=== PATIENT | male | born 1945 | race Caucasian/White ===

== ENCOUNTER 2017-12-22 02:56 | Inpatient (IN) | payer MEDICARE, OTHER ==
[~2017-12-22] VITALS: Ht 172.7 cm; Wt 64.8 kg
[2017-12-22] MEDS ORDERED: DILTIAZEM 125 MG in DEXTROSE 5% 100 ML IV SCH (03:11)
[2017-12-22] MEDS ORDERED: ASPIRIN 81 MG TABLET CHEW ONE (03:16)
[2017-12-22 03:20] LABS: MEAN CORPUSCULAR HEMOGLOBIN 25.9 pg (27.5-34.5); MEAN CORPUSCULAR HGB CONC 31.2 g/dL (33.2-36.2); MEAN CORPUSCULAR VOLUME 82.9 fL (81-97); MEAN PLATELET VOLUME 8.9 fL (7.4-10.4); PLATELET COUNT 379 x10^3/uL (130-400); RED BLOOD COUNT 4.99 x10^6/uL (4.38-5.82); RED CELL DISTRIBUTION WIDTH 16.9 % (9.4-14.8)
[2017-12-22] MEDS ORDERED: DILTIAZEM 5 MG/ML, 5ML IV ONE (03:30)
[2017-12-22] MEDS ORDERED: SODIUM CHLORIDE FLUSH 10ML SYR IVF ONE (03:30)
[2017-12-22] MEDS ORDERED: ASPIRIN 81 MG TABLET CHEW PO ONE (03:30)
[2017-12-22 03:32] LABS: INTERNATIONAL NORMALIZED RATIO 1.49 (0.93-1.1); PROTHROMBIN TIME 15.4 Seconds (9.6-11.5)
[2017-12-22 03:34] LABS: ALANINE AMINOTRANSFERASE 40 U/L (12-78); ALBUMIN 2.9 g/dL (3.4-5.0); ANION GAP 4 mmol/L (5-15); CALCIUM 9.1 mg/dL (8.5-10.1); CHLORIDE 101 mmol/L (98-107); CREATININE 1.53 mg/dL (0.7-1.3)
[2017-12-22 03:39] LABS: ALKALINE PHOSPHATASE 104 U/L (45-117); BILIRUBIN,TOTAL 0.4 mg/dL (0.2-1.0); TOTAL PROTEIN 7.6 g/dL (6.4-8.2); TROPONIN I 0.041 ng/mL (0.000-0.045)
[2017-12-22] MEDS ORDERED: CALCIUM CHLORIDE 10%, 10ML SYR IVPush ONE (04:00)
[2017-12-22] MEDS ORDERED: FUROSEMIDE 40 MG/4 ML IV ONE ×2 (04:00→11:30)
[2017-12-22] MEDS ORDERED: INSULIN REGULAR 100 UNITS/ML, 3ML VIAL IVPush ONE (04:00)
[2017-12-22] MEDS ORDERED: DEXTROSE 50%, 50ML SYRINGE IVPush ONE (04:00)
[2017-12-22] MEDS ORDERED: FUROSEMIDE 40 MG/4 ML ONE (04:10)
[2017-12-22] MEDS ORDERED: DEXTROSE 50%, 50ML SYRINGE ONE (04:10)
[2017-12-22] MEDS ORDERED: CALCIUM CHLORIDE 10%, 10ML SYR ONE (04:10)
[2017-12-22] MEDS ORDERED: INSULIN REGULAR 100 UNITS/ML, 3ML VIAL ONE (04:11)
[2017-12-22 04:13] LABS: BASOPHILS # (AUTO) 0.05 x10^3/uL (0-0.1); BASOPHILS % (AUTO) 0 % (0-1); EOSINOPHILS # (AUTO) 0.01 x10^3/uL (0-0.4); EOSINOPHILS % (AUTO) 0 % (1-7); LYMPHOCYTES # (AUTO) 0.54 x10^3/uL (1-3.4); LYMPHOCYTES % (AUTO) 3 % (22-44); MD SCAN; MONOCYTES # (AUTO) 1.53 x10^3/uL (0.2-0.8); MONOCYTES % (AUTO) 9 % (2-9); NEUTROPHILS # (AUTO) 14.18 x10^3/uL (1.8-6.8); NEUTROPHILS % (AUTO) 87 % (42-75)
[2017-12-22] MEDS ORDERED: SODIUM CHLORIDE 0.9% 1,000 ML IV SCH (04:27)
[2017-12-22] MEDS ORDERED: PROMETHAZINE 25 MG/ML, 1ML IM PRN (04:30)
[2017-12-22] MEDS ORDERED: DILTIAZEM 125 MG in SODIUM CHLORIDE 0.9% 100 ML IV PRN (04:30)
[2017-12-22] MEDS ORDERED: DILTIAZEM 5 MG/ML, 5ML IVPush PRN (04:30)
[2017-12-22] MEDS ORDERED: ONDANSETRON ODT 4 MG PO PRN (04:30)
[2017-12-22] MEDS ORDERED: ONDANSETRON 2MG/ML, 2ML IVPush PRN (04:30)
[2017-12-22] MEDS ORDERED: hydrALAzine 20 MG/ML, 1ML IVPush PRN (04:30)
[2017-12-22] MEDS ORDERED: morphine SULFATE 10 MG/ML, 1ML IVPush PRN (04:30)
[2017-12-22 06:00] VITALS: BP 117/83
[2017-12-22] MEDS ORDERED: ATOR10TA9 PO (06:32)
[2017-12-22] MEDS ORDERED: MULT-297 PO (06:32)
[2017-12-22] MEDS ORDERED: FINA5TAB4 PO (06:32)
[2017-12-22] MEDS ORDERED: calcium PO (06:32)
[2017-12-22] MEDS ORDERED: METO25TA35 PO (06:32)
[2017-12-22] MEDS ORDERED: ASCO500T8 PO (06:32)
[2017-12-22] MEDS: HEPARIN 5,000 UNITS/ML, 1ML SQ SCH ×2 (06:36→18:03)
[2017-12-22] MEDS ORDERED: BUDE10.2 PO (06:36)
[2017-12-22] MEDS ORDERED: ALBU8.5H8 PO (06:36)
[2017-12-22] MEDS: METOPROLOL TARTRATE 25 MG TABLET PO SCH ×3 (06:37→18:03)
[2017-12-22 08:04] VITALS: BP 119/76
[2017-12-22] MEDS: ALBUTEROL SULFATE 2.5 MG/3 ML NPPB SCH (09:00)
[2017-12-22 09:05] LABS: CULTURE INDICATED? NO; MICROSCOPIC NOT IND
[2017-12-22 12:02] VITALS: BP 127/75
[2017-12-22 18:01] VITALS: BP 135/74
[2017-12-22 19:14] VITALS: BP 134/75
[2017-12-22] MEDS: ACETAMINOPHEN 325 MG TABLET PO PRN (21:14)
[2017-12-23] MEDS: METOPROLOL TARTRATE 25 MG TABLET PO SCH ×4 (00:09→16:46)
[2017-12-23] MEDS ORDERED: DIPHENHYDRAMINE 50 MG CAPSULE ONE (00:15)
[2017-12-23] MEDS ORDERED: DIPHENHYDRAMINE 50 MG CAPSULE PO ONE ×2 (00:30)
[2017-12-23] MEDS: ALBUTEROL SULFATE 2.5 MG/3 ML NPPB SCH ×2 (00:43→09:00)
[2017-12-23 01:07] VITALS: BP 114/63
[2017-12-23] MEDS: HEPARIN 5,000 UNITS/ML, 1ML SQ SCH ×2 (05:28→18:22)
[2017-12-23 05:57] LABS: BASOPHILS % (AUTO) 0 % (0-1); EOSINOPHILS # (AUTO) 0.07 x10^3/uL (0-0.4); EOSINOPHILS % (AUTO) 0 % (1-7); LYMPHOCYTES # (AUTO) 0.47 x10^3/uL (1-3.4); LYMPHOCYTES % (AUTO) 3 % (22-44); MD NO; MEAN CORPUSCULAR HEMOGLOBIN 26.9 pg (27.5-34.5); MEAN CORPUSCULAR HGB CONC 32.2 g/dL (33.2-36.2); MEAN CORPUSCULAR VOLUME 83.6 fL (81-97); MEAN PLATELET VOLUME 9.1 fL (7.4-10.4); MONOCYTES # (AUTO) 1.23 x10^3/uL (0.2-0.8); MONOCYTES % (AUTO) 8 % (2-9); NEUTROPHILS # (AUTO) 13.42 x10^3/uL (1.8-6.8); NEUTROPHILS % (AUTO) 88 % (42-75); PLATELET COUNT 318 x10^3/uL (130-400); RED BLOOD COUNT 5.03 x10^6/uL (4.38-5.82); RED CELL DISTRIBUTION WIDTH 16.9 % (9.4-14.8)
[2017-12-23 06:05] LABS: ALBUMIN 2.8 g/dL (3.4-5.0); ANION GAP 7 mmol/L (5-15); CHLORIDE 100 mmol/L (98-107)
[2017-12-23 06:19] LABS: ALANINE AMINOTRANSFERASE 36 U/L (12-78); ALKALINE PHOSPHATASE 95 U/L (45-117); BILIRUBIN,TOTAL 0.4 mg/dL (0.2-1.0); CREATININE 1.58 mg/dL (0.7-1.3); TOTAL PROTEIN 7.2 g/dL (6.4-8.2)
[2017-12-23 06:47] VITALS: BP 123/67
[2017-12-23 06:59] VITALS: BP 128/60
[2017-12-23] MEDS ORDERED: SODIUM POLYSTYRENE SULFONATE ORAL SUSP PO ONE (07:00)
[2017-12-23] MEDS: ASPIRIN 325 MG TABLET EC PO SCH (07:30)
[2017-12-23] MEDS ORDERED: FUROSEMIDE 40 MG/4 ML ONE (07:41)
[2017-12-23] MEDS ORDERED: FUROSEMIDE 40 MG/4 ML IV ONE ×2 (08:00)
[2017-12-23] MEDS: FUROSEMIDE 40 MG/4 ML IV SCH (08:01)
[2017-12-23] MEDS ORDERED: LIDOCAINE-MPF 2%, 2ML ONE ×2 (08:09→10:09)
[2017-12-23] MEDS ORDERED: FUROSEMIDE 20 MG/2 ML IV SCH (09:00)
[2017-12-23] MEDS ORDERED: LIDOCAINE-MPF 1%, 2ML ENDO PRN (15:30)
[2017-12-23] MEDS ORDERED: SENNOSIDES 8.8 MG/5 ML ORAL SOL NG PRN (15:30)
[2017-12-23] MEDS ORDERED: SENNA/DOCUSATE TABLET NG PRN (15:30)
[2017-12-23] MEDS ORDERED: LACTULOSE 20 GM/30 ML UDC NG PRN (15:30)
[2017-12-23] MEDS: ALBUTEROL/IPRATROPIUM 2.5MG/0.5MG, 3 ML INLINE SCH ×3 (15:30→22:05)
[2017-12-23] MEDS ORDERED: BISACODYL 10 MG SUPP PR PRN (15:30)
[2017-12-23] MEDS ORDERED: PHARMACY MAY ADJ FOR RENAL FX MC SCH (15:30)
[2017-12-23] MEDS: METOPROLOL 1 MG/ML, 5ML IVPush PRN (15:45)
[2017-12-23] MEDS: FAMOTIDINE 20 MG/2 ML IV SCH (15:48)
[2017-12-23] MEDS: CEFTRIAXONE 2 GM in SODIUM CHLORIDE 0.9% 50 ML IV SCH (15:53)
[2017-12-23] MEDS: DOXYCYCLINE 100 MG in DEXTROSE 5% 250 ML IV SCH (15:53)
[2017-12-23] MEDS ORDERED: PROPOFOL 100 ML IV ONE (16:49)
[2017-12-23] MEDS: PROPOFOL 100 ML IV PRN (16:55)
[2017-12-24] MEDS ORDERED: ROCURONIUM 10 MG/ML,10ML ONE
[2017-12-24] MEDS ORDERED: MIDAZOLAM 1 MG/ML, 5ML ONE
[2017-12-24] MEDS ORDERED: PROPOFOL 10 MG/ML, 100ML IV ONE
[2017-12-24] MEDS: METOPROLOL TARTRATE 25 MG TABLET PO SCH ×2 (01:14→05:35)
[2017-12-24] MEDS: PROPOFOL 100 ML IV PRN ×4 (01:16→17:02)
[2017-12-24] MEDS: ALBUTEROL/IPRATROPIUM 2.5MG/0.5MG, 3 ML INLINE SCH ×6 (02:15→22:34)
[2017-12-24 04:00] VITALS: BP 113/62
[2017-12-24] MEDS: FAMOTIDINE 20 MG/2 ML IV SCH ×2 (04:14→19:36)
[2017-12-24] MEDS: DOXYCYCLINE 100 MG in DEXTROSE 5% 250 ML IV SCH ×2 (04:14→16:52)
[2017-12-24 04:40] LABS: ALANINE AMINOTRANSFERASE 23 U/L (12-78); ALBUMIN 2.2 g/dL (3.4-5.0); ANION GAP 10 mmol/L (5-15); CALCIUM 8.1 mg/dL (8.5-10.1); CHLORIDE 101 mmol/L (98-107)
[2017-12-24 04:43] LABS: ALKALINE PHOSPHATASE 74 U/L (45-117); BILIRUBIN,TOTAL 0.7 mg/dL (0.2-1.0); CREATININE 1.22 mg/dL (0.7-1.3); TOTAL PROTEIN 5.8 g/dL (6.4-8.2)
[2017-12-24] MEDS: ASPIRIN 325 MG TABLET EC PO SCH (05:35)
[2017-12-24 05:48] LABS: BASOPHILS # (AUTO) 0.02 x10^3/uL (0-0.1); BASOPHILS % (AUTO) 0 % (0-1); EOSINOPHILS # (AUTO) 0.01 x10^3/uL (0-0.4); EOSINOPHILS % (AUTO) 0 % (1-7); LYMPHOCYTES # (AUTO) 0.26 x10^3/uL (1-3.4); LYMPHOCYTES % (AUTO) 2 % (22-44); MD SCAN; MEAN CORPUSCULAR HGB CONC 32.5 g/dL (33.2-36.2); MEAN CORPUSCULAR VOLUME 79.9 fL (81-97); MONOCYTES # (AUTO) 1.06 x10^3/uL (0.2-0.8); MONOCYTES % (AUTO) 8 % (2-9); NEUTROPHILS # (AUTO) 11.33 x10^3/uL (1.8-6.8); NEUTROPHILS % (AUTO) 89 % (42-75); PLATELET COUNT 258 x10^3/uL (130-400); RED CELL DISTRIBUTION WIDTH 16.7 % (9.4-14.8)
[2017-12-24] MEDS: HEPARIN 5,000 UNITS/ML, 1ML SQ SCH ×2 (06:13→19:36)
[2017-12-24] MEDS: FUROSEMIDE 40 MG/4 ML IV SCH (10:25)
[2017-12-24] MEDS: VERAPAMIL 80MG TABLET PO SCH ×3 (11:18→22:32)
[2017-12-24] MEDS: CEFTRIAXONE 2 GM in SODIUM CHLORIDE 0.9% 50 ML IV SCH (16:51)
[2017-12-25] MEDS: ALBUTEROL/IPRATROPIUM 2.5MG/0.5MG, 3 ML INLINE SCH ×6 (02:08→22:20)
[2017-12-25] MEDS: PROPOFOL 100 ML IV PRN ×4 (02:15→22:21)
[2017-12-25 04:24] VITALS: BP 104/68
[2017-12-25 04:34] LABS: BASOPHILS # (AUTO) 0.02 x10^3/uL (0-0.1); BASOPHILS % (AUTO) 0 % (0-1); EOSINOPHILS # (AUTO) 0.11 x10^3/uL (0-0.4); EOSINOPHILS % (AUTO) 1 % (1-7); LYMPHOCYTES # (AUTO) 0.25 x10^3/uL (1-3.4); LYMPHOCYTES % (AUTO) 2 % (22-44); MD NO; MEAN CORPUSCULAR HEMOGLOBIN 26.4 pg (27.5-34.5); MEAN CORPUSCULAR HGB CONC 32.2 g/dL (33.2-36.2); MEAN CORPUSCULAR VOLUME 82.2 fL (81-97); MEAN PLATELET VOLUME 9.2 fL (7.4-10.4); MONOCYTES # (AUTO) 1.05 x10^3/uL (0.2-0.8); MONOCYTES % (AUTO) 10 % (2-9); NEUTROPHILS # (AUTO) 8.97 x10^3/uL (1.8-6.8); NEUTROPHILS % (AUTO) 86 % (42-75); PLATELET COUNT 246 x10^3/uL (130-400); RED BLOOD COUNT 4.37 x10^6/uL (4.38-5.82); RED CELL DISTRIBUTION WIDTH 16.5 % (9.4-14.8)
[2017-12-25 04:46] LABS: ANION GAP 8 mmol/L (5-15); CALCIUM 8.3 mg/dL (8.5-10.1); CHLORIDE 99 mmol/L (98-107); CREATININE 1.24 mg/dL (0.7-1.3)
[2017-12-25] MEDS: DOXYCYCLINE 100 MG in DEXTROSE 5% 250 ML IV SCH ×2 (05:04→16:37)
[2017-12-25] MEDS: ASPIRIN 325 MG TABLET EC PO SCH (08:00)
[2017-12-25] MEDS ORDERED: DIGOXIN 0.25 MG/ML, 2ML IVPush ONE (08:30)
[2017-12-25] MEDS: FUROSEMIDE 40 MG/4 ML IV SCH (08:50)
[2017-12-25] MEDS: FAMOTIDINE 20 MG/2 ML IV SCH ×2 (08:51→20:05)
[2017-12-25] MEDS: HEPARIN 5,000 UNITS/ML, 1ML SQ SCH ×2 (08:51→20:05)
[2017-12-25] MEDS: METOPROLOL TARTRATE 25 MG TABLET PO SCH ×2 (08:51→16:37)
[2017-12-25] MEDS ORDERED: ASPIRIN 81 MG TABLET CHEW PO ONE (09:00)
[2017-12-25] MEDS: CEFTRIAXONE 2 GM in SODIUM CHLORIDE 0.9% 50 ML IV SCH (16:16)
[2017-12-26] MEDS: METOPROLOL TARTRATE 25 MG TABLET PO SCH ×3 (00:13→16:08)
[2017-12-26] MEDS: ALBUTEROL/IPRATROPIUM 2.5MG/0.5MG, 3 ML INLINE SCH ×6 (02:25→22:40)
[2017-12-26 03:58] VITALS: BP 122/68
[2017-12-26] MEDS: DOXYCYCLINE 100 MG in DEXTROSE 5% 250 ML IV SCH ×2 (04:34→16:09)
[2017-12-26 04:46] LABS: BASOPHILS % (AUTO) 0 % (0-1); EOSINOPHILS # (AUTO) 0.22 x10^3/uL (0-0.4); EOSINOPHILS % (AUTO) 2 % (1-7); LYMPHOCYTES # (AUTO) 0.38 x10^3/uL (1-3.4); LYMPHOCYTES % (AUTO) 4 % (22-44); MD NO; MEAN CORPUSCULAR HEMOGLOBIN 26.1 pg (27.5-34.5); MEAN CORPUSCULAR HGB CONC 32.1 g/dL (33.2-36.2); MEAN CORPUSCULAR VOLUME 81.4 fL (81-97); MEAN PLATELET VOLUME 9.3 fL (7.4-10.4); MONOCYTES # (AUTO) 1.01 x10^3/uL (0.2-0.8); MONOCYTES % (AUTO) 10 % (2-9); NEUTROPHILS # (AUTO) 8.64 x10^3/uL (1.8-6.8); NEUTROPHILS % (AUTO) 84 % (42-75); PLATELET COUNT 234 x10^3/uL (130-400); RED BLOOD COUNT 4.39 x10^6/uL (4.38-5.82); RED CELL DISTRIBUTION WIDTH 16.8 % (9.4-14.8)
[2017-12-26 04:56] LABS: CHLORIDE 97 mmol/L (98-107); CREATININE 1.06 mg/dL (0.7-1.3)
[2017-12-26 05:02] LABS: CALCIUM 8.1 mg/dL (8.5-10.1); TRIGLYCERIDES 68 mg/dL (50-200)
[2017-12-26] MEDS: PROPOFOL 100 ML IV PRN ×3 (05:50→16:56)
[2017-12-26 05:52] LABS: ANION GAP 8 mmol/L (5-15)
[2017-12-26] MEDS ORDERED: DIGOXIN 0.25 MG/ML, 2ML IVPush ONE (07:30)
[2017-12-26] MEDS: AcetaZOLAMIDE INJ 500 MG IVPush SCH ×2 (09:15→21:44)
[2017-12-26] MEDS: FAMOTIDINE 20 MG/2 ML IV SCH ×2 (09:15→21:44)
[2017-12-26] MEDS: ASPIRIN 81 MG TABLET CHEW PO SCH (09:15)
[2017-12-26] MEDS: HEPARIN 5,000 UNITS/ML, 1ML SQ SCH (09:16)
[2017-12-26] MEDS: ENOXAPARIN 60 MG/0.6 ML SQ SCH ×2 (09:48→21:44)
[2017-12-26] MEDS: CEFTRIAXONE 2 GM in SODIUM CHLORIDE 0.9% 50 ML IV SCH (16:05)
[2017-12-27] MEDS: METOPROLOL TARTRATE 25 MG TABLET PO SCH ×3 (00:36→16:00)
[2017-12-27] MEDS: PROPOFOL 100 ML IV PRN ×3 (00:36→16:00)
[2017-12-27] MEDS: ALBUTEROL/IPRATROPIUM 2.5MG/0.5MG, 3 ML INLINE SCH ×6 (02:37→22:07)
[2017-12-27 04:13] VITALS: BP 108/53
[2017-12-27 04:32] LABS: BASOPHILS # (AUTO) 0.02 x10^3/uL (0-0.1); BASOPHILS % (AUTO) 0 % (0-1); EOSINOPHILS # (AUTO) 0.29 x10^3/uL (0-0.4); EOSINOPHILS % (AUTO) 3 % (1-7); LYMPHOCYTES # (AUTO) 0.37 x10^3/uL (1-3.4); LYMPHOCYTES % (AUTO) 4 % (22-44); MD NO; MEAN CORPUSCULAR HGB CONC 32.2 g/dL (33.2-36.2); MEAN CORPUSCULAR VOLUME 80.7 fL (81-97); MONOCYTES # (AUTO) 0.99 x10^3/uL (0.2-0.8); MONOCYTES % (AUTO) 11 % (2-9); NEUTROPHILS # (AUTO) 7.43 x10^3/uL (1.8-6.8); NEUTROPHILS % (AUTO) 82 % (42-75); PLATELET COUNT 237 x10^3/uL (130-400); RED BLOOD COUNT 4.19 x10^6/uL (4.38-5.82); RED CELL DISTRIBUTION WIDTH 16.7 % (9.4-14.8)
[2017-12-27 04:46] LABS: ANION GAP 7 mmol/L (5-15); CALCIUM 8.2 mg/dL (8.5-10.1); CHLORIDE 100 mmol/L (98-107)
[2017-12-27 04:47] LABS: CREATININE 0.96 mg/dL (0.7-1.3)
[2017-12-27] MEDS: DOXYCYCLINE 100 MG in DEXTROSE 5% 250 ML IV SCH ×2 (04:51→17:25)
[2017-12-27] MEDS: FAMOTIDINE 20 MG/2 ML IV SCH ×2 (08:09→20:00)
[2017-12-27] MEDS: ASPIRIN 81 MG TABLET CHEW PO SCH (08:09)
[2017-12-27] MEDS: ENOXAPARIN 60 MG/0.6 ML SQ SCH ×2 (08:10→20:01)
[2017-12-27] MEDS: AcetaZOLAMIDE INJ 500 MG IVPush SCH ×2 (08:10→20:00)
[2017-12-27] MEDS: ERYTHROMYCIN OPHTH 0.5%, 1GM EACHEYE SCH ×3 (11:04→19:55)
[2017-12-27] MEDS: CEFTRIAXONE 2 GM in SODIUM CHLORIDE 0.9% 50 ML IV SCH (16:00)
[2017-12-28] MEDS: METOPROLOL TARTRATE 25 MG TABLET PO SCH ×3 (00:46→16:00)
[2017-12-28] MEDS: PROPOFOL 100 ML IV PRN ×3 (00:46→13:29)
[2017-12-28] MEDS: ALBUTEROL/IPRATROPIUM 2.5MG/0.5MG, 3 ML INLINE SCH ×6 (02:18→22:14)
[2017-12-28 04:32] VITALS: BP 127/59
[2017-12-28] MEDS: POLYETHYLENE GLYCOL 17 GM PACKET PO PRN (05:03)
[2017-12-28] MEDS: DOXYCYCLINE 100 MG in DEXTROSE 5% 250 ML IV SCH ×2 (05:03→16:43)
[2017-12-28] MEDS: ERYTHROMYCIN OPHTH 0.5%, 1GM EACHEYE SCH ×4 (05:03→21:00)
[2017-12-28 05:10] LABS: ANION GAP 7 mmol/L (5-15); CALCIUM 8.2 mg/dL (8.5-10.1); CHLORIDE 103 mmol/L (98-107); CREATININE 0.83 mg/dL (0.7-1.3)
[2017-12-28 06:23] LABS: MEAN CORPUSCULAR HEMOGLOBIN 26.9 pg (27.5-34.5); MEAN CORPUSCULAR VOLUME 81.4 fL (81-97); MEAN PLATELET VOLUME 9.8 fL (7.4-10.4); PLATELET COUNT 258 x10^3/uL (130-400); RED BLOOD COUNT 4.32 x10^6/uL (4.38-5.82); RED CELL DISTRIBUTION WIDTH 16.3 % (9.4-14.8)
[2017-12-28 06:25] LABS: BASOPHILS % (AUTO) 0 % (0-1); EOSINOPHILS # (AUTO) 0.47 x10^3/uL (0-0.4); EOSINOPHILS % (AUTO) 4 % (1-7); LYMPHOCYTES % (AUTO) 4 % (22-44); MD SCAN; MONOCYTES # (AUTO) 1.02 x10^3/uL (0.2-0.8); MONOCYTES % (AUTO) 9 % (2-9); NEUTROPHILS # (AUTO) 9.02 x10^3/uL (1.8-6.8); NEUTROPHILS % (AUTO) 83 % (42-75)
[2017-12-28] MEDS: AcetaZOLAMIDE INJ 500 MG IVPush SCH ×2 (07:55→21:00)
[2017-12-28] MEDS: FERROUS SULFATE 325 MG TABLET PO SCH (07:55)
[2017-12-28] MEDS: ASPIRIN 81 MG TABLET CHEW PO SCH (07:55)
[2017-12-28] MEDS: FAMOTIDINE 20 MG/2 ML IV SCH ×2 (07:55→21:00)
[2017-12-28] MEDS ORDERED: BISACODYL 10 MG SUPP PR PRN (08:30)
[2017-12-28] MEDS ORDERED: LACTULOSE 20 GM/30 ML UDC PO PRN (08:30)
[2017-12-28] MEDS: DOCUSATE 50 MG/5 ML, 10ML UDC NG SCH ×2 (11:29→20:30)
[2017-12-28] MEDS: ENOXAPARIN 60 MG/0.6 ML SQ SCH ×2 (11:30→21:30)
[2017-12-28] MEDS: DIGOXIN 0.125 MG TABLET PO SCH (12:54)
[2017-12-28] MEDS: CEFTRIAXONE 2 GM in SODIUM CHLORIDE 0.9% 50 ML IV SCH (16:01)
[2017-12-29] MEDS: METOPROLOL TARTRATE 25 MG TABLET PO SCH ×3 (00:44→16:40)
[2017-12-29] MEDS: PROPOFOL 100 ML IV PRN (01:39)
[2017-12-29] MEDS: ALBUTEROL/IPRATROPIUM 2.5MG/0.5MG, 3 ML INLINE SCH ×6 (02:23→22:00)
[2017-12-29 04:29] LABS: BASOPHILS # (AUTO) 0.01 x10^3/uL (0-0.1); BASOPHILS % (AUTO) 0 % (0-1); EOSINOPHILS # (AUTO) 0.36 x10^3/uL (0-0.4); EOSINOPHILS % (AUTO) 3 % (1-7); LYMPHOCYTES # (AUTO) 0.36 x10^3/uL (1-3.4); LYMPHOCYTES % (AUTO) 3 % (22-44); MD NO; MEAN CORPUSCULAR HEMOGLOBIN 26.1 pg (27.5-34.5); MEAN CORPUSCULAR HGB CONC 32.1 g/dL (33.2-36.2); MEAN CORPUSCULAR VOLUME 81.6 fL (81-97); MEAN PLATELET VOLUME 9.3 fL (7.4-10.4); MONOCYTES # (AUTO) 1.17 x10^3/uL (0.2-0.8); MONOCYTES % (AUTO) 10 % (2-9); NEUTROPHILS # (AUTO) 9.45 x10^3/uL (1.8-6.8); NEUTROPHILS % (AUTO) 83 % (42-75); PLATELET COUNT 246 x10^3/uL (130-400); RED BLOOD COUNT 4.31 x10^6/uL (4.38-5.82); RED CELL DISTRIBUTION WIDTH 16.4 % (9.4-14.8)
[2017-12-29 04:38] LABS: ANION GAP 6 mmol/L (5-15); CALCIUM 8.4 mg/dL (8.5-10.1); CHLORIDE 103 mmol/L (98-107)
[2017-12-29 04:54] LABS: CREATININE 0.82 mg/dL (0.7-1.3); TRIGLYCERIDES 69 mg/dL (50-200)
[2017-12-29] MEDS: DOXYCYCLINE 100 MG in DEXTROSE 5% 250 ML IV SCH ×2 (05:11→17:11)
[2017-12-29] MEDS ORDERED: SUCCINYLCHOLINE 20 MG/ML, 10ML ONE (08:00)
[2017-12-29] MEDS ORDERED: MIDAZOLAM 1 MG/ML, 5ML ONE (08:00)
[2017-12-29] MEDS: ERYTHROMYCIN OPHTH 0.5%, 1GM EACHEYE SCH ×4 (08:07→21:57)
[2017-12-29] MEDS: DIGOXIN 0.125 MG TABLET PO SCH (08:08)
[2017-12-29] MEDS: AcetaZOLAMIDE INJ 500 MG IVPush SCH ×2 (08:08→21:58)
[2017-12-29] MEDS: ASPIRIN 81 MG TABLET CHEW PO SCH (08:08)
[2017-12-29] MEDS: FERROUS SULFATE 325 MG TABLET PO SCH (08:08)
[2017-12-29] MEDS: FAMOTIDINE 20 MG/2 ML IV SCH ×2 (08:08→21:58)
[2017-12-29] MEDS: DOCUSATE 50 MG/5 ML, 10ML UDC NG SCH ×2 (08:10→21:57)
[2017-12-29] MEDS: ENOXAPARIN 60 MG/0.6 ML SQ SCH ×2 (10:17→21:58)
[2017-12-29] MEDS: POLYETHYLENE GLYCOL 17 GM PACKET PO PRN (13:50)
[2017-12-29] MEDS: CEFTRIAXONE 2 GM in SODIUM CHLORIDE 0.9% 50 ML IV SCH (16:24)
[2017-12-29] MEDS ORDERED: ALBUTEROL/IPRATROPIUM 2.5MG/0.5MG, 3 ML NPPB SCH (18:00)
[2017-12-29] MEDS ORDERED: MIDAZOLAM 1 MG/ML, 2ML IVPush ONE (18:30)
[2017-12-29] MEDS ORDERED: SUCCINYLCHOLINE 20 MG/ML, 10ML IVPush ONE (18:30)
[2017-12-30] MEDS: METOPROLOL TARTRATE 25 MG TABLET PO SCH ×3 (01:07→16:11)
[2017-12-30] MEDS: METOPROLOL 1 MG/ML, 5ML IVPush PRN (01:07)
[2017-12-30] MEDS: ALBUTEROL/IPRATROPIUM 2.5MG/0.5MG, 3 ML INLINE SCH ×6 (02:18→22:00)
[2017-12-30] MEDS: PROPOFOL 100 ML IV PRN (02:29)
[2017-12-30 04:22] LABS: BASOPHILS # (AUTO) 0.05 x10^3/uL (0-0.1); BASOPHILS % (AUTO) 1 % (0-1); EOSINOPHILS % (AUTO) 0 % (1-7); LYMPHOCYTES # (AUTO) 0.41 x10^3/uL (1-3.4); LYMPHOCYTES % (AUTO) 4 % (22-44); MD NO; MEAN CORPUSCULAR HEMOGLOBIN 25.1 pg (27.5-34.5); MEAN CORPUSCULAR HGB CONC 31.2 g/dL (33.2-36.2); MEAN CORPUSCULAR VOLUME 80.3 fL (81-97); MEAN PLATELET VOLUME 9.5 fL (7.4-10.4); MONOCYTES # (AUTO) 1.33 x10^3/uL (0.2-0.8); MONOCYTES % (AUTO) 13 % (2-9); NEUTROPHILS # (AUTO) 8.65 x10^3/uL (1.8-6.8); NEUTROPHILS % (AUTO) 83 % (42-75); PLATELET COUNT 275 x10^3/uL (130-400); RED BLOOD COUNT 4.14 x10^6/uL (4.38-5.82); RED CELL DISTRIBUTION WIDTH 16.1 % (9.4-14.8)
[2017-12-30 04:25] LABS: ANION GAP 7 mmol/L (5-15); CALCIUM 8.4 mg/dL (8.5-10.1); CHLORIDE 105 mmol/L (98-107)
[2017-12-30] MEDS: DOXYCYCLINE 100 MG in DEXTROSE 5% 250 ML IV SCH ×2 (04:27→18:16)
[2017-12-30] MEDS: ERYTHROMYCIN OPHTH 0.5%, 1GM EACHEYE SCH ×4 (06:29→21:09)
[2017-12-30] MEDS: DIGOXIN 0.125 MG TABLET PO SCH (10:04)
[2017-12-30] MEDS: FERROUS SULFATE 325 MG TABLET PO SCH (10:04)
[2017-12-30] MEDS: ASPIRIN 81 MG TABLET CHEW PO SCH (10:04)
[2017-12-30] MEDS: FAMOTIDINE 20 MG/2 ML IV SCH ×2 (10:04→21:09)
[2017-12-30] MEDS: ENOXAPARIN 60 MG/0.6 ML SQ SCH ×2 (10:05→21:09)
[2017-12-30] MEDS: AcetaZOLAMIDE INJ 500 MG IVPush SCH (10:05)
[2017-12-30] MEDS: DOCUSATE 50 MG/5 ML, 10ML UDC NG SCH ×2 (10:12→21:09)
[2017-12-30] MEDS: DEXMEDETOMIDINE 1,000 MCG in SODIUM CHLORIDE 0.9% 240 ML IV PRN (15:44)
[2017-12-30] MEDS: CEFTRIAXONE 2 GM in SODIUM CHLORIDE 0.9% 50 ML IV SCH (16:05)
[2017-12-31] MEDS: METOPROLOL TARTRATE 25 MG TABLET PO SCH ×3 (00:40→17:49)
[2017-12-31] MEDS: ALBUTEROL/IPRATROPIUM 2.5MG/0.5MG, 3 ML INLINE SCH ×6 (03:07→23:04)
[2017-12-31 04:38] LABS: BASOPHILS # (AUTO) 0.04 x10^3/uL (0-0.1); BASOPHILS % (AUTO) 1 % (0-1); EOSINOPHILS # (AUTO) 0.25 x10^3/uL (0-0.4); EOSINOPHILS % (AUTO) 3 % (1-7); LYMPHOCYTES # (AUTO) 0.38 x10^3/uL (1-3.4); LYMPHOCYTES % (AUTO) 5 % (22-44); MD NO; MEAN CORPUSCULAR HEMOGLOBIN 25.6 pg (27.5-34.5); MEAN CORPUSCULAR HGB CONC 31.7 g/dL (33.2-36.2); MEAN CORPUSCULAR VOLUME 80.6 fL (81-97); MEAN PLATELET VOLUME 9.5 fL (7.4-10.4); MONOCYTES # (AUTO) 1.06 x10^3/uL (0.2-0.8); MONOCYTES % (AUTO) 13 % (2-9); NEUTROPHILS # (AUTO) 6.58 x10^3/uL (1.8-6.8); NEUTROPHILS % (AUTO) 79 % (42-75); PLATELET COUNT 276 x10^3/uL (130-400); RED BLOOD COUNT 4.11 x10^6/uL (4.38-5.82); RED CELL DISTRIBUTION WIDTH 16.3 % (9.4-14.8)
[2017-12-31 04:49] LABS: ANION GAP 8 mmol/L (5-15); CALCIUM 8.5 mg/dL (8.5-10.1); CHLORIDE 107 mmol/L (98-107); CREATININE 0.76 mg/dL (0.7-1.3)
[2017-12-31] MEDS: DOXYCYCLINE 100 MG in DEXTROSE 5% 250 ML IV SCH ×2 (05:13→17:49)
[2017-12-31] MEDS: ERYTHROMYCIN OPHTH 0.5%, 1GM EACHEYE SCH ×4 (05:13→21:02)
[2017-12-31] MEDS: FERROUS SULFATE 325 MG TABLET PO SCH (08:00)
[2017-12-31] MEDS: DOCUSATE 50 MG/5 ML, 10ML UDC NG SCH ×2 (08:30→20:30)
[2017-12-31] MEDS: DIGOXIN 0.125 MG TABLET PO SCH (08:49)
[2017-12-31] MEDS: FUROSEMIDE 20 MG/2 ML IV SCH (08:50)
[2017-12-31] MEDS: FAMOTIDINE 20 MG/2 ML IV SCH ×2 (08:50→21:01)
[2017-12-31] MEDS: ASPIRIN 81 MG TABLET CHEW PO SCH (08:50)
[2017-12-31] MEDS: ENOXAPARIN 60 MG/0.6 ML SQ SCH (09:30)
[2017-12-31] MEDS: FERROUS SULFATE 220 MG/5 ML ORAL SOL PO SCH (11:37)
[2017-12-31] MEDS: CEFTRIAXONE 2 GM in SODIUM CHLORIDE 0.9% 50 ML IV SCH (16:17)
[2017-12-31] MEDS ORDERED: LIDOCAINE-MPF 2%, 2ML INFIL PRN (17:00)
[2017-12-31] MEDS ORDERED: LIDOCAINE-MPF 2%, 2ML MM PRN (17:00)
[2018-01-01] MEDS: DEXMEDETOMIDINE 1,000 MCG in SODIUM CHLORIDE 0.9% 240 ML IV PRN ×2 (00:19→22:45)
[2018-01-01] MEDS: METOPROLOL TARTRATE 25 MG TABLET PO SCH ×3 (00:19→16:43)
[2018-01-01] MEDS: ALBUTEROL/IPRATROPIUM 2.5MG/0.5MG, 3 ML INLINE SCH ×6 (02:00→22:00)
[2018-01-01 04:41] LABS: BASOPHILS # (AUTO) 0.08 x10^3/uL (0-0.1); BASOPHILS % (AUTO) 1 % (0-1); EOSINOPHILS # (AUTO) 0.24 x10^3/uL (0-0.4); EOSINOPHILS % (AUTO) 3 % (1-7); LYMPHOCYTES % (AUTO) 5 % (22-44); MD NO; MEAN CORPUSCULAR HEMOGLOBIN 25.9 pg (27.5-34.5); MEAN CORPUSCULAR HGB CONC 32.4 g/dL (33.2-36.2); MEAN CORPUSCULAR VOLUME 79.8 fL (81-97); MEAN PLATELET VOLUME 9.3 fL (7.4-10.4); MONOCYTES # (AUTO) 0.96 x10^3/uL (0.2-0.8); MONOCYTES % (AUTO) 11 % (2-9); NEUTROPHILS # (AUTO) 6.84 x10^3/uL (1.8-6.8); NEUTROPHILS % (AUTO) 80 % (42-75); PLATELET COUNT 322 x10^3/uL (130-400); RED BLOOD COUNT 4.17 x10^6/uL (4.38-5.82); RED CELL DISTRIBUTION WIDTH 16.1 % (9.4-14.8)
[2018-01-01 04:49] LABS: ANION GAP 8 mmol/L (5-15); CALCIUM 8.8 mg/dL (8.5-10.1); CHLORIDE 107 mmol/L (98-107)
[2018-01-01 04:55] LABS: CREATININE 0.77 mg/dL (0.7-1.3); TRIGLYCERIDES 70 mg/dL (50-200)
[2018-01-01] MEDS: DOXYCYCLINE 100 MG in DEXTROSE 5% 250 ML IV SCH ×2 (05:35→16:44)
[2018-01-01] MEDS: ERYTHROMYCIN OPHTH 0.5%, 1GM EACHEYE SCH ×4 (05:36→21:15)
[2018-01-01 08:54] LABS: INTERNATIONAL NORMALIZED RATIO 1.16 (0.93-1.1)
[2018-01-01] MEDS: FAMOTIDINE 20 MG/2 ML IV SCH ×2 (10:09→21:15)
[2018-01-01] MEDS: DIGOXIN 0.125 MG TABLET PO SCH (10:09)
[2018-01-01] MEDS: DOCUSATE 50 MG/5 ML, 10ML UDC NG SCH ×2 (10:09→21:14)
[2018-01-01] MEDS: FUROSEMIDE 20 MG/2 ML IV SCH (10:10)
[2018-01-01] MEDS: FERROUS SULFATE 220 MG/5 ML ORAL SOL PO SCH (10:10)
[2018-01-01] MEDS ORDERED: LIDOCAINE-MPF 2%, 2ML ONE (10:21)
[2018-01-01] MEDS ORDERED: MIDAZOLAM 1 MG/ML, 5ML ONE (10:41)
[2018-01-01] MEDS ORDERED: FENTANYL PF 100 MCG/2ML ONE (10:41)
[2018-01-01] MEDS: CEFTRIAXONE 2 GM in SODIUM CHLORIDE 0.9% 50 ML IV SCH (16:44)
[2018-01-01] MEDS: ENOXAPARIN 60 MG/0.6 ML SQ SCH (21:14)
[2018-01-02] MEDS: METOPROLOL TARTRATE 25 MG TABLET PO SCH ×3 (00:13→18:34)
[2018-01-02] MEDS: ALBUTEROL/IPRATROPIUM 2.5MG/0.5MG, 3 ML INLINE SCH ×6 (02:00→22:00)
[2018-01-02] MEDS: FENTANYL PF 100 MCG/2ML IVPush PRN ×5 (02:19→23:11)
[2018-01-02 04:17] LABS: ANION GAP 9 mmol/L (5-15); CALCIUM 8.5 mg/dL (8.5-10.1); CHLORIDE 108 mmol/L (98-107); CREATININE 0.74 mg/dL (0.7-1.3)
[2018-01-02 04:18] LABS: BASOPHILS # (AUTO) 0.03 x10^3/uL (0-0.1); BASOPHILS % (AUTO) 0 % (0-1); EOSINOPHILS # (AUTO) 0.19 x10^3/uL (0-0.4); EOSINOPHILS % (AUTO) 3 % (1-7); LYMPHOCYTES # (AUTO) 0.36 x10^3/uL (1-3.4); LYMPHOCYTES % (AUTO) 5 % (22-44); MD NO; MEAN CORPUSCULAR HEMOGLOBIN 25.8 pg (27.5-34.5); MEAN CORPUSCULAR HGB CONC 32.3 g/dL (33.2-36.2); MEAN PLATELET VOLUME 9.4 fL (7.4-10.4); MONOCYTES % (AUTO) 13 % (2-9); NEUTROPHILS # (AUTO) 5.72 x10^3/uL (1.8-6.8); NEUTROPHILS % (AUTO) 80 % (42-75); PLATELET COUNT 257 x10^3/uL (130-400); RED BLOOD COUNT 4.12 x10^6/uL (4.38-5.82); RED CELL DISTRIBUTION WIDTH 16.2 % (9.4-14.8)
[2018-01-02] MEDS: DOXYCYCLINE 100 MG in DEXTROSE 5% 250 ML IV SCH ×2 (05:05→16:47)
[2018-01-02] MEDS: ERYTHROMYCIN OPHTH 0.5%, 1GM EACHEYE SCH ×4 (05:08→20:52)
[2018-01-02] MEDS: FUROSEMIDE 20 MG/2 ML IV SCH (08:34)
[2018-01-02] MEDS: DOCUSATE 50 MG/5 ML, 10ML UDC NG SCH ×2 (08:34→20:51)
[2018-01-02] MEDS: FAMOTIDINE 20 MG/2 ML IV SCH ×2 (08:34→20:51)
[2018-01-02] MEDS: DIGOXIN 0.125 MG TABLET PO SCH (08:34)
[2018-01-02] MEDS: ENOXAPARIN 60 MG/0.6 ML SQ SCH ×2 (08:35→20:51)
[2018-01-02] MEDS: FERROUS SULFATE 220 MG/5 ML ORAL SOL PO SCH (08:35)
[2018-01-02] MEDS: ASPIRIN 81 MG TABLET CHEW PO SCH (08:35)
[2018-01-02] MEDS: DEXMEDETOMIDINE 1,000 MCG in SODIUM CHLORIDE 0.9% 240 ML IV PRN (14:21)
[2018-01-02] MEDS: CEFTRIAXONE 2 GM in SODIUM CHLORIDE 0.9% 50 ML IV SCH (15:57)
[2018-01-02] MEDS: ACETAMINOPHEN 325 MG TABLET PO PRN (20:51)
[2018-01-03] MEDS: METOPROLOL TARTRATE 25 MG TABLET PO SCH ×3 (02:10→17:37)
[2018-01-03] MEDS: DEXMEDETOMIDINE 1,000 MCG in SODIUM CHLORIDE 0.9% 240 ML IV PRN (02:10)
[2018-01-03] MEDS: ALBUTEROL/IPRATROPIUM 2.5MG/0.5MG, 3 ML INLINE SCH ×6 (02:49→23:00)
[2018-01-03] MEDS: DOXYCYCLINE 100 MG in DEXTROSE 5% 250 ML IV SCH ×2 (04:25→17:05)
[2018-01-03] MEDS: ERYTHROMYCIN OPHTH 0.5%, 1GM EACHEYE SCH ×4 (04:25→21:03)
[2018-01-03 04:52] LABS: ANION GAP 9 mmol/L (5-15); BASOPHILS # (AUTO) 0.04 x10^3/uL (0-0.1); BASOPHILS % (AUTO) 1 % (0-1); CALCIUM 8.7 mg/dL (8.5-10.1); CHLORIDE 105 mmol/L (98-107); CREATININE 0.78 mg/dL (0.7-1.3); EOSINOPHILS # (AUTO) 0.11 x10^3/uL (0-0.4); EOSINOPHILS % (AUTO) 1 % (1-7); LYMPHOCYTES # (AUTO) 0.52 x10^3/uL (1-3.4); LYMPHOCYTES % (AUTO) 6 % (22-44); MD NO; MEAN CORPUSCULAR HEMOGLOBIN 25.7 pg (27.5-34.5); MEAN CORPUSCULAR HGB CONC 32.1 g/dL (33.2-36.2); MEAN CORPUSCULAR VOLUME 79.9 fL (81-97); MEAN PLATELET VOLUME 9.1 fL (7.4-10.4); MONOCYTES # (AUTO) 0.95 x10^3/uL (0.2-0.8); MONOCYTES % (AUTO) 11 % (2-9); NEUTROPHILS # (AUTO) 7.35 x10^3/uL (1.8-6.8); NEUTROPHILS % (AUTO) 82 % (42-75); PLATELET COUNT 299 x10^3/uL (130-400); RED BLOOD COUNT 4.04 x10^6/uL (4.38-5.82); RED CELL DISTRIBUTION WIDTH 15.9 % (9.4-14.8)
[2018-01-03] MEDS ORDERED: SCOPOLAMINE PATCH, 1.5MG PATCH.TD72 TD SCH (08:30)
[2018-01-03] MEDS ORDERED: SCOPOLAMINE PATCH, 1.5MG PATCH.TD72 TD ONE (08:32)
[2018-01-03] MEDS: FAMOTIDINE 20 MG/2 ML IV SCH ×2 (08:37→21:03)
[2018-01-03] MEDS: ENOXAPARIN 60 MG/0.6 ML SQ SCH (08:38)
[2018-01-03] MEDS: FUROSEMIDE 20 MG/2 ML IV SCH (08:38)
[2018-01-03] MEDS: FERROUS SULFATE 220 MG/5 ML ORAL SOL PO SCH (08:38)
[2018-01-03] MEDS: DOCUSATE 50 MG/5 ML, 10ML UDC NG SCH ×2 (08:38→20:30)
[2018-01-03] MEDS: ASPIRIN 81 MG TABLET CHEW PO SCH (08:39)
[2018-01-03] MEDS: DIGOXIN 0.125 MG TABLET PO SCH (08:39)
[2018-01-03] MEDS ORDERED: DIGOXIN 0.25 MG/ML, 2ML IVPush ONE (17:00)
[2018-01-03] MEDS: RIVAROXABAN 20 MG TABLET PO SCH (17:04)
[2018-01-03] MEDS: CEFTRIAXONE 2 GM in SODIUM CHLORIDE 0.9% 50 ML IV SCH (17:05)
[2018-01-03] MEDS ORDERED: QUETIAPINE 25MG TABLET PO SCH (21:00)
[2018-01-03] MEDS: ACETAMINOPHEN 325 MG TABLET PO PRN (21:03)
[2018-01-04] MEDS: ALBUTEROL/IPRATROPIUM 2.5MG/0.5MG, 3 ML INLINE SCH (02:00)
[2018-01-04] MEDS: METOPROLOL TARTRATE 25 MG TABLET PO SCH ×3 (02:25→21:29)
[2018-01-04] MEDS ORDERED: ALBUTEROL/IPRATROPIUM 2.5MG/0.5MG, 3 ML ONE (03:50)
[2018-01-04] MEDS: ERYTHROMYCIN OPHTH 0.5%, 1GM EACHEYE SCH ×4 (04:15→20:40)
[2018-01-04] MEDS: DOXYCYCLINE 100 MG in DEXTROSE 5% 250 ML IV SCH (04:15)
[2018-01-04 04:24] LABS: BASOPHILS # (AUTO) 0.02 x10^3/uL (0-0.1); BASOPHILS % (AUTO) 0 % (0-1); EOSINOPHILS % (AUTO) 0 % (1-7); LYMPHOCYTES # (AUTO) 0.46 x10^3/uL (1-3.4); LYMPHOCYTES % (AUTO) 4 % (22-44); MD NO; MEAN CORPUSCULAR HEMOGLOBIN 25.5 pg (27.5-34.5); MEAN CORPUSCULAR HGB CONC 31.9 g/dL (33.2-36.2); MEAN CORPUSCULAR VOLUME 79.9 fL (81-97); MEAN PLATELET VOLUME 9.3 fL (7.4-10.4); MONOCYTES % (AUTO) 7 % (2-9); NEUTROPHILS # (AUTO) 10.76 x10^3/uL (1.8-6.8); NEUTROPHILS % (AUTO) 89 % (42-75); PLATELET COUNT 359 x10^3/uL (130-400); RED BLOOD COUNT 4.17 x10^6/uL (4.38-5.82); RED CELL DISTRIBUTION WIDTH 16.7 % (9.4-14.8)
[2018-01-04 04:34] LABS: ANION GAP 6 mmol/L (5-15); CALCIUM 8.7 mg/dL (8.5-10.1); CHLORIDE 107 mmol/L (98-107); CREATININE 0.75 mg/dL (0.7-1.3); TRIGLYCERIDES 79 mg/dL (50-200)
[2018-01-04] MEDS: METOPROLOL 1 MG/ML, 5ML IVPush PRN (05:51)
[2018-01-04] MEDS: ALBUTEROL/IPRATROPIUM 2.5MG/0.5MG, 3 ML NEB SCH ×4 (07:40→20:00)
[2018-01-04] MEDS: DOCUSATE 50 MG/5 ML, 10ML UDC NG SCH ×2 (08:30→20:39)
[2018-01-04] MEDS: FUROSEMIDE 20 MG/2 ML IV SCH (10:06)
[2018-01-04] MEDS: FAMOTIDINE 20 MG/2 ML IV SCH ×2 (10:06→20:40)
[2018-01-04] MEDS: FERROUS SULFATE 220 MG/5 ML ORAL SOL PO SCH (13:55)
[2018-01-04] MEDS: DIGOXIN 0.125 MG TABLET PO SCH (13:58)
[2018-01-04] MEDS: ASPIRIN 81 MG TABLET CHEW PO SCH (13:59)
[2018-01-04] MEDS: RIVAROXABAN 20 MG TABLET PO SCH (17:35)
[2018-01-04] MEDS ORDERED: ALBUTEROL/IPRATROPIUM 2.5MG/0.5MG, 3 ML NPPB SCH (20:00)
[2018-01-05 04:16] LABS: BASOPHILS % (AUTO) 0 % (0-1); EOSINOPHILS # (AUTO) 0.05 x10^3/uL (0-0.4); EOSINOPHILS % (AUTO) 0 % (1-7); LYMPHOCYTES # (AUTO) 0.48 x10^3/uL (1-3.4); LYMPHOCYTES % (AUTO) 4 % (22-44); MD NO; MEAN CORPUSCULAR HEMOGLOBIN 25.7 pg (27.5-34.5); MEAN CORPUSCULAR HGB CONC 31.9 g/dL (33.2-36.2); MEAN CORPUSCULAR VOLUME 80.6 fL (81-97); MEAN PLATELET VOLUME 9.4 fL (7.4-10.4); MONOCYTES # (AUTO) 1.02 x10^3/uL (0.2-0.8); MONOCYTES % (AUTO) 8 % (2-9); NEUTROPHILS # (AUTO) 10.84 x10^3/uL (1.8-6.8); NEUTROPHILS % (AUTO) 87 % (42-75); PLATELET COUNT 404 x10^3/uL (130-400); RED BLOOD COUNT 4.39 x10^6/uL (4.38-5.82); RED CELL DISTRIBUTION WIDTH 16.5 % (9.4-14.8)
[2018-01-05 04:27] LABS: ANION GAP 9 mmol/L (5-15); CALCIUM 8.9 mg/dL (8.5-10.1); CHLORIDE 106 mmol/L (98-107); CREATININE 0.68 mg/dL (0.7-1.3)
[2018-01-05] MEDS: ERYTHROMYCIN OPHTH 0.5%, 1GM EACHEYE SCH ×4 (04:53→21:18)
[2018-01-05] MEDS: METOPROLOL TARTRATE 25 MG TABLET PO SCH ×3 (04:53→21:19)
[2018-01-05] MEDS: ALBUTEROL/IPRATROPIUM 2.5MG/0.5MG, 3 ML NEB SCH ×4 (07:38→18:52)
[2018-01-05] MEDS: DOCUSATE 50 MG/5 ML, 10ML UDC NG SCH ×2 (08:30→20:30)
[2018-01-05] MEDS: FUROSEMIDE 20 MG/2 ML IV SCH (08:58)
[2018-01-05] MEDS: ASPIRIN 81 MG TABLET CHEW PO SCH (08:58)
[2018-01-05] MEDS: FAMOTIDINE 20 MG/2 ML IV SCH (08:58)
[2018-01-05] MEDS: DIGOXIN 0.125 MG TABLET PO SCH (08:59)
[2018-01-05] MEDS: FERROUS SULFATE 220 MG/5 ML ORAL SOL PO SCH (09:00)
[2018-01-05 13:24] VITALS: BP 127/78
[2018-01-05] MEDS: RIVAROXABAN 20 MG TABLET PO SCH (17:02)
[2018-01-05 19:37] VITALS: BP 149/79
[2018-01-05 21:18] VITALS: BP 138/80
[2018-01-06 00:43] VITALS: BP 141/81
[2018-01-06 05:31] VITALS: BP 139/93
[2018-01-06] MEDS: METOPROLOL TARTRATE 25 MG TABLET PO SCH ×2 (05:34→13:26)
[2018-01-06] MEDS: ERYTHROMYCIN OPHTH 0.5%, 1GM EACHEYE SCH ×2 (05:34→11:28)
[2018-01-06 05:45] LABS: BASOPHILS # (AUTO) 0.02 x10^3/uL (0-0.1); BASOPHILS % (AUTO) 0 % (0-1); EOSINOPHILS # (AUTO) 0.02 x10^3/uL (0-0.4); EOSINOPHILS % (AUTO) 0 % (1-7); LYMPHOCYTES # (AUTO) 0.46 x10^3/uL (1-3.4); LYMPHOCYTES % (AUTO) 4 % (22-44); MD NO; MEAN CORPUSCULAR HEMOGLOBIN 25.6 pg (27.5-34.5); MEAN CORPUSCULAR HGB CONC 31.9 g/dL (33.2-36.2); MEAN CORPUSCULAR VOLUME 80.5 fL (81-97); MEAN PLATELET VOLUME 9.4 fL (7.4-10.4); MONOCYTES # (AUTO) 0.96 x10^3/uL (0.2-0.8); MONOCYTES % (AUTO) 9 % (2-9); NEUTROPHILS # (AUTO) 9.54 x10^3/uL (1.8-6.8); NEUTROPHILS % (AUTO) 87 % (42-75); PLATELET COUNT 386 x10^3/uL (130-400); RED BLOOD COUNT 4.37 x10^6/uL (4.38-5.82); RED CELL DISTRIBUTION WIDTH 16.4 % (9.4-14.8)
[2018-01-06 06:47] VITALS: BP 136/83
[2018-01-06] MEDS: ALBUTEROL/IPRATROPIUM 2.5MG/0.5MG, 3 ML NEB SCH ×3 (07:00→14:18)
[2018-01-06] MEDS: DOCUSATE 50 MG/5 ML, 10ML UDC NG SCH (08:13)
[2018-01-06] MEDS: ASPIRIN 81 MG TABLET CHEW PO SCH (08:21)
[2018-01-06] MEDS: DIGOXIN 0.125 MG TABLET PO SCH (08:22)
[2018-01-06] MEDS ORDERED: FERROUS SULFATE 325 MG TABLET PO SCH (08:34)
[2018-01-06] MEDS ORDERED: FUROSEMIDE 20 MG TABLET PO SCH (09:00)
[2018-01-06] MEDS ORDERED: ASPI-515 PO (11:32)
[2018-01-06] MEDS ORDERED: ERYT1OIN5 EACHEYE (11:32)
[2018-01-06] MEDS ORDERED: DIGO125T PO (11:32)
[2018-01-06] MEDS ORDERED: RIVA20TA PO (11:32)
[2018-01-06] MEDS ORDERED: FURO20TA3 PO (11:32)
[2018-01-06] MEDS ORDERED: FERR-51 PO (11:32)
[2018-01-06] MEDS ORDERED: METO25TA35 PO (11:32)
[2018-01-06 13:13] VITALS: BP 144/77
== END 2018-01-06 16:20 | DRG 870 ==
LOC: ED 04:11 → EDIP 04:18 → 5SO 05:28 → CCU 12-23 07:37 → 5SO 01-05 11:13
PROVIDERS: ADMIT Hospitalist; ATTEND Hospitalist
PROC: 5A1955Z Respiratory Ventilation, Greater than 96 Consecutive Hours (ICD-10-PCS; principal; 2017-12-23)
PROC: 0BH18EZ Insertion of Endotracheal Airway into Trachea, Via Natural or Artificial Opening Endoscopic (ICD-10-PCS; 2017-12-23)
PROC: 0W993ZZ Drainage of Right Pleural Cavity, Percutaneous Approach (ICD-10-PCS; 2017-12-23)
PROC: 5A09357 Assistance with Respiratory Ventilation, Less than 24 Consecutive Hours, Continuous Positive Airway Pressure (ICD-10-PCS; 2017-12-23)
PROC: 0BH17EZ Insertion of Endotracheal Airway into Trachea, Via Natural or Artificial Opening (ICD-10-PCS; 2017-12-23)
PROC: 5A1955Z Respiratory Ventilation, Greater than 96 Consecutive Hours (ICD-10-PCS; 2017-12-23)
PROC: 0BBG3ZX Excision of Left Upper Lung Lobe, Percutaneous Approach, Diagnostic (ICD-10-PCS; 2018-01-01)
PROC: 0GBH3ZX Excision of Right Thyroid Gland Lobe, Percutaneous Approach, Diagnostic (ICD-10-PCS; 2018-01-01)
DX: A41.9 Sepsis, unspecified organism (principal); J96.02 Acute respiratory failure with hypercapnia; I50.43 Acute on chronic combined systolic (congestive) and diastolic (congestive) heart failure; G93.41 Metabolic encephalopathy; J18.1 Lobar pneumonia, unspecified organism; N17.0 Acute kidney failure with tubular necrosis; E43 Unspecified severe protein-calorie malnutrition; D68.69 Other thrombophilia; E87.2 Acidosis; I31.3 Pericardial effusion (noninflammatory); I48.1 Persistent atrial fibrillation; I48.92 Unspecified atrial flutter; Z99.11 Dependence on respirator [ventilator] status; R22.2 Localized swelling, mass and lump, trunk; E07.9 Disorder of thyroid, unspecified; I48.91 Unspecified atrial fibrillation; E87.5 Hyperkalemia; D50.9 Iron deficiency anemia, unspecified; E04.1 Nontoxic single thyroid nodule; E78.5 Hyperlipidemia, unspecified; H10.9 Unspecified conjunctivitis; I07.1 Rheumatic tricuspid insufficiency; I11.0 Hypertensive heart disease with heart failure; I27.20 Pulmonary hypertension, unspecified; I35.8 Other nonrheumatic aortic valve disorders; N40.0 Benign prostatic hyperplasia without lower urinary tract symptoms; Z51.5 Encounter for palliative care; Z79.899 Other long term (current) drug therapy; Z79.82 Long term (current) use of aspirin; Z68.21 Body mass index [BMI] 21.0-21.9, adult
CPT/HCPCS: 32405; 32555; 36415; 36600; 60100; 71045; 71250; 74018; 74230; 76536; 76942; 77012; 80048; 80053; 80162; 81003; 82042; 82728; 82803; 82805; 83540; 83550; 83615; 83735; 83880; 83986; 84100; 84157; 84443; 84478; 84484; 85025; 85610; 85730; 87070; 87081; 87205; 88112; 88172; 88173; 88305; 88341; 88342; 88360; 93005; 93306; 94002; 94003; 94150; 94640; 94660; 96374; 96375; 99156; 99157; 99291; G0378; J0696; J1644; J1650; J1940; J2250; J2704; J3010; J3490; J7060; J7613; J7620; G0461; J0330; J1120; J1160; J7030; J7050; S0028